=== PATIENT | male | born 1985 | race African-American/Black ===

== ENCOUNTER → 2021-12-29 | Outpatient (CLI) | payer BC ==
--- NOTE | 2021-12-30 07:15 | US ---
EXAMINATION TYPE: US groin RT DATE OF EXAM: 12/29/2021 COMPARISON: NONE CLINICAL HISTORY: R59.0 enlarged lymph nodes. Palpable areas right groin Scanned right groin within patient's area of concern, multiple lymph nodes noted with largest = 2.5cm IMPRESSION: Multiple mildly enlarged lymph nodes in the right groin of uncertain etiology.
== END | disposition home or self-care (01) ==
LOC: RADUSWWP 16:16
PROVIDERS: ATTEND Family Medicine
DX: R59.0 Localized enlarged lymph nodes (principal)